=== PATIENT | male | born 1950 | race Caucasian/White ===

== ENCOUNTER → 2020-09-16 | Outpatient (CLI) | payer MEDICARE ==
--- NOTE | 2020-09-16 15:43 | RAD ---
EXAM: Lower extremity arterial Doppler sonogram with ankle-brachial indices (ERIS). HISTORY: Nonpalpable pedal pulses. Peripheral vascular disease. TECHNIQUE: Doppler sonographic evaluation of the lower extremities was performed and pressure reading s were assessed. FINDINGS: Right brachial pressure: 134 mmHg Left brachial pressure: 121 mmHg Right ankle pressure: 134 mmHg Right ERIS: 1.0 Left ankle pressure: 139 mmHg Left ERIS: 1.0 There are biphasic and triphasic waveforms throughout the lower extremity arteries. There are elevate d peak systolic velocities within the left greater than right common femoral arteries, measuring 183 cm/s on the left and 163 cm/s on the right. There is also a borderline elevated peak systolic velocit y within the proximal right superficial femoral artery, measuring 150 cm/s. IMPRESSION: 1. Normal bilateral ankle-brachial indices. 2. Doppler findings suggesting mild stenosis involving the common femoral arteries and borderline mil d stenosis involving the proximal right superficial femoral artery. 3. No evidence of arterial occlusion. Electronically signed by: Lucina Mccarty MD (09/16/2020 3:40 PM) [id number]
== END ==
LOC: US 14:30
PROVIDERS: ATTEND Podiatrist
DX: R09.89 Other specified symptoms and signs involving the circulatory and respiratory systems (principal)
CPT/HCPCS: 93922; 93925